=== PATIENT | male | born 1970 | race Caucasian/White ===

== ENCOUNTER → 2016-04-12 | Outpatient (CLI) | payer OTHER | LOC: MW.RT 20:01 | DX: G47.30 Sleep apnea, unspecified (principal) | CPT/HCPCS: 95811 ==

== ENCOUNTER 2022-06-22 08:12 | Day surgery (SDC) | payer OTHER ==
[~2022-06-22 08:12] MED LIST: Lactated Ringers 1,000 ML IV SCH; ceFAZolin 2 GM in Sodium Chloride 0.9% 50 ML IV ONE
[2022-06-22] MEDS ORDERED: Bupivacaine 0.25% 30 ML SDV ONE (09:12)
[2022-06-22] MEDS ORDERED: Lidocaine 1% 20 ML MDV ONE (09:12)
[2022-06-22] MEDS ORDERED: ceFAZolin 1 GM Vial ONE (09:21)
[2022-06-22] MEDS ORDERED: ceFAZolin 2 GM in Sodium Chloride 0.9% 50 ML IV ONE (09:30)
== END 2022-06-22 10:37 | disposition home or self-care (01) ==
LOC: MW.SDS 08:12
PROVIDERS: ATTEND Surgery
DX: D17.0 Benign lipomatous neoplasm of skin and subcutaneous tissue of head, face and neck (principal); K21.9 Gastro-esophageal reflux disease without esophagitis; G47.33 Obstructive sleep apnea (adult) (pediatric); Z79.899 Other long term (current) drug therapy
CPT/HCPCS: 21014; J0690; J3490; J7120